=== PATIENT | female | born 1940 | race Caucasian/White ===

== ENCOUNTER → 2018-01-29 12:11 | Outpatient (CLI) | payer MEDICARE, SELFPAY ==
[2018-01-29 13:19] LABS: Add Manual Diff / Slide Review NO; Basophils Percent Auto 0.6 % (0-2); Eosinophils Percent Auto 1.6 % (2-4); Hematocrit 40.6 % (36-46); Hemoglobin 13.5 g/dL (12.0-16.0); Lymphocytes Percent Auto 22.7 % (25-40); Mean Corpuscular HGB Conc 33.4 % (30-36); Mean Corpuscular Hemoglobin 28.5 PG (26-34); Mean Corpuscular Volume 85.5 fL (80-100); Neutrophils Absolute Auto 4200 /uL (3000-5900); Neutrophils Percent Auto 67.1 % (50-75); Platelet Count 270 X10^3/uL (150-400); Red Blood Cell Count 4.75 X10^6/uL (4.0-5.2); Red Cell Distribution Width 13.7 % (11.6-14.8); White Blood Cell Count 6.2 X10^3/uL (4.5-11.0)
[2018-01-29 13:32] LABS: Alanine Aminotransferase 28 IU/L (9-52); Albumin 4.4 g/dL (3.5-5.0); Albumin Globulin Ratio 1.6 (1.0-2.8); Alkaline Phosphatase 68 U/L (38-126); Aspartate Aminotransferase 31 IU/L (14-36); BUN Creatinine Ratio 18.3 (6-22); Bilirubin Total 0.5 mg/dL (0.2-1.3); Blood Urea Nitrogen 11 mg/dL (7-17); Calcium 9.5 mg/dL (8.4-10.2); Carbon Dioxide 33 mmol/L (22-32); Chloride 102 mmol/L (98-107); Cholesterol 199 mg/dL (140-199); Estimated Glomerular Filt Rate > 60.0 mL/min (>60); Globulin 2.7 g/dL (1.7-4.1); Glucose 86 mg/dL (80-110); HDL Cholesterol 93 mg/dL (40-60); HEMOLYSIS < 15 (0-50); LDL Cholesterol Calculated 90 mg/dL (<100); Potassium 3.8 mmol/L (3.4-5.1); Sodium 144 mmol/L (137-145); Total Protein 7.1 g/dL (6.3-8.2); Triglycerides 81 mg/dL (35-150)
[2018-01-29 17:26] LABS: Creatinine Urine Random 21.7 mg/dL
[2018-01-29 17:33] LABS: Microalbumi Creatinin Ratio Ur 27.6 ug/mg CR (<30); Microalbumin Urine Random < 0.6 mg/dL (0-1.6)
== END ==
PROVIDERS: PCP Registered Nurse; Visit Provider Registered Nurse
DX: I10 Essential (primary) hypertension (principal)
CPT/HCPCS: 36415; 80053; 80061; 82043; 82570; 85025

== ENCOUNTER → 2019-01-07 15:34 | Outpatient (CLI) | payer MEDICARE, SELFPAY | PROVIDERS: PCP Registered Nurse; Visit Provider Hospitalist | DX: R19.7 Diarrhea, unspecified (principal) | CPT/HCPCS: 87045; 87899 ==

== ENCOUNTER → 2019-01-07 15:54 | Outpatient (CLI) | payer MEDICARE, SELFPAY ==
[2019-01-07 16:28] LABS: Add Manual Diff / Slide Review NO; Basophils Absolute Auto 0 /uL (0-100); Basophils Percent Auto 0.4 % (0-2); Eosinophils Absolute Auto 100 /uL (0-450); Eosinophils Percent Auto 0.9 % (2-4); Hematocrit 38.2 % (36-46); Hemoglobin 12.8 g/dL (12.0-16.0); Lymphocytes Absolute Auto 1300 /uL (1100-4500); Lymphocytes Percent Auto 23.3 % (25-40); Mean Corpuscular HGB Conc 33.5 % (30-36); Mean Corpuscular Hemoglobin 28.6 PG (26-34); Mean Corpuscular Volume 85.4 fL (80-100); Monocytes Absolute Auto 500 /uL (0-900); Monocytes Percent Auto 9.6 % (3-14); Neutrophils Absolute Auto 3800 /uL (1500-7000); Neutrophils Percent Auto 65.8 % (50-75); Platelet Count 270 X10^3/uL (150-400); Red Blood Cell Count 4.48 X10^6/uL (4.0-5.2); Red Cell Distribution Width 13.8 % (11.6-14.8); White Blood Cell Count 5.7 X10^3/uL (4.5-11.0)
[2019-01-07 16:46] LABS: Alanine Aminotransferase 28 IU/L (9-52); Albumin Globulin Ratio 1.5 (1.0-2.8); Alkaline Phosphatase 78 U/L (38-126); Aspartate Aminotransferase 30 IU/L (14-36); Bilirubin Total 0.4 mg/dL (0.2-1.3); Blood Urea Nitrogen 13 mg/dL (7-17); Calcium 9.4 mg/dL (8.4-10.2); Carbon Dioxide 29 mmol/L (22-32); Chloride 103 mmol/L (98-107); Estimated Glomerular Filt Rate > 60.0 mL/min (>60); Globulin 2.6 g/dL (1.7-4.1); Glucose 85 mg/dL (80-110); HEMOLYSIS < 15 (0-50); Potassium 4.1 mmol/L (3.4-5.1); Sodium 138 mmol/L (137-145); Total Protein 6.6 g/dL (6.3-8.2)
== END ==
PROVIDERS: PCP Registered Nurse; Visit Provider Hospitalist
DX: R19.7 Diarrhea, unspecified (principal)
CPT/HCPCS: 36415; 80053; 85025; 87045; 87899

== ENCOUNTER → 2019-01-08 12:54 | Outpatient (CLI) | payer MEDICARE, SELFPAY ==
[2019-01-08 14:16] LABS: Clostridium Difficile Tox PCR Negative for C. diff
[2019-01-11 21:35] LABS: Fecal Immunochemical Test DETECTED (NOT DETECTED)
== END ==
PROVIDERS: PCP Registered Nurse; Visit Provider Hospitalist
DX: R19.4 Change in bowel habit (principal); R19.7 Diarrhea, unspecified
CPT/HCPCS: 82274; 87493

== ENCOUNTER 2019-02-14 08:12 | Day surgery (SDC) | payer MEDICARE, SELFPAY ==
[2019-02-14] VITALS (7 sets, daily range): BP systolic 129–179; BP diastolic 63–85; PULSE 76–86; RESP 13–16; TEMP 36–36.9; O2SAT 96–98; BMI 20.9
--- NOTE | 2019-02-14 08:41 | PM.HP.1 ---
History of Present Illness History of Present Illness Date Patient Seen: 02/14/19 Time Patient Seen: 08:42 Chief complaint: [id number] COLONOSCOPY Narrative: Patient presents for colorectal screening. They have never had a previous colonoscopy. They have had new intermittent diarrhea over the past 3 months. On further history denies nausea, vomiting, abdominal pain, loss of appetite, unexplained weight loss, constipation, melena, hematochezia, or bright red blood per rectum. Patient History Medical History Cataract (Resolved 2014) Chicken pox (Resolved) COPD (chronic obstructive pulmonary disease) (Chronic) Depression (Chronic ~1994) Foot pain (Chronic) Glaucoma (Chronic) Measles (Resolved) Osteoarthritis (Chronic) Polymyalgia rheumatica (Chronic) Urinary incontinence (Chronic ~1999) Vertigo (Chronic) Surgical History Anesthesia (Resolved) History of cataract removal with insertion of prosthetic lens (Resolved 12/12/14) History of cataract removal with insertion of prosthetic lens (Resolved 02/20/15) Status post bunionectomy (Resolved) Status post cholecystectomy (Resolved) Family History Grandmother Cancer Mother Cancer Brother Alzheimer's disease Sister Alzheimer's disease Social History Smoking Status: Current every day smoker alcohol intake: never substance use type: does not use Family & Social History Family History Grandmother Cancer Mother Cancer Brother Alzheimer's disease Sister Alzheimer's disease Tobacco & Substance use: Smoking Status Current every day smoker alcohol intake never Meds Home Medications and Allergies Home Medications Medication Instructions Recorded Confirmed Type LATANOPROST 0.005% OPHTH 1 drp OPHTH SEE INSTRUCTIONS #2.5 02/07/12 02/14/19 History (Latanoprost) ml lovastatin 40 mg tablet 40 mg PO Q DAY #90 tab 06/28/18 02/14/19 Rx lisinopril 40 mg tablet 60 mg PO QDAY #135 tab 02/11/19 02/14/19 Rx Allergies Allergy/AdvReac Type Severity Reaction Status Date / Time morphine [MORPHINE] Allergy Mild HIVES/RASH/ Verified 02/14/19 08:36 ITCHING Review of Systems Review of Systems ROS Unobtainable: All systems reviewed & are unremarkable except as noted in HPI and below Exam Narrative Exam Narrative: General-no acute distress, poor dentition HEENT-moist mucous membranes, no scleral icterus Neck-supple, no lymphadenopathy Chest- non labored respirations, clear to auscultation bilaterally Cardiac-regular rate no peripheral edema Abdomen-soft, nontender, non distended Extremities-warm, well perfused Neurological-alert and oriented, no focal deficits Assessment & Plan Assessment and plan (1) Screening for colon cancer: Current visit: Yes Status: Acute Assessment & Plan narrative: Patient is requiring colorectal screening. Colonoscopy is recommended. Technical details were discussed. Risks, benefits, alternatives explained. Risks including but not limited to sedation, aspiration, bleeding, pain, missed lesion, incomplete examination, need for further radiographic studies, colonic perforation, need for major abdominal surgery, and all attendant risks major surgery were discussed at length. All questions were answered to their satisfaction, and they voiced understanding.
[2019-02-14] MEDS: SODIUM CHLORIDE 0.9% 1,000 ML 200 ML IV (08:55)
[2019-02-14] MEDS: MIDAZOLAM 5 MG/5 ML VIAL IV (09:29)
[2019-02-14] MEDS: fentaNYL 250 MCG/5 ML INJ IV (09:30)
--- NOTE | 2019-02-14 09:49 | PM.OP.ENDO ---
Operative Date/Time/Diagnoses Date of procedure: 02/14/19 Time of procedure: 09:50 Pre-op diagnosis: screening colonoscopy Post-op diagnosis: same Procedure & Clinicians Study performed: colonoscopy Same procedure as scheduled: Yes Indications: 79-year-old female no previous colonoscopy recent diarrhea presents for screening. Surgeon: Shamar Arora Procedure Notes SCOAP/Timeout: Performed Procedure in detail: Patient placed in left lateral decubitus position. Time out was performed. Procedural sedation was administered with Versed and Fentanyl. A rectal exam demonstrated no external hemorrhoids no internal masses. Colonoscopy scope was placed into the rectum and advanced through the colon to the cecum. The ileocecal valve was identified. The scope was then slowly withdrawn examining colon thoroughly in all directions. The colonoscopy was normal, there were no masses polyps colitis or diverticulosis. The scope was retroflexed within the rectum demonstrated grade 1 internal hemorrhoids. The rectum was desufflated and the scope removed. Patient tolerated procedure well. Scope withdrawal time: 8 Sedation minutes: 22 Findings: internal hemorrhoids Impression: normal colonoscopy Post-procedure Recommendations: Colonscopy in 10 years
== END 2019-02-14 10:26 | disposition home or self-care (01) ==
PROVIDERS: PCP Registered Nurse; Visit Provider Surgery
PROC: 0DJD8ZZ Inspection of Lower Intestinal Tract, Via Natural or Artificial Opening Endoscopic (ICD-10-PCS; CPT 45378; principal; 2019-02-14 09:15)
DX: Z12.11 Encounter for screening for malignant neoplasm of colon (principal); K64.0 First degree hemorrhoids
CPT/HCPCS: G0121; 99152; J2250; J3010

== ENCOUNTER → 2019-12-02 10:39 | Outpatient (CLI) | payer MEDICARE, SELFPAY ==
[2019-12-02 11:32] LABS: Add Manual Diff / Slide Review NO; Basophils Absolute Auto 0 /uL (0-100); Basophils Percent Auto 0.7 % (0-2); Eosinophils Absolute Auto 100 /uL (0-450); Eosinophils Percent Auto 1.5 % (2-4); Hematocrit 39.4 % (36-46); Hemoglobin 13.1 g/dL (12.0-16.0); Lymphocytes Absolute Auto 1300 /uL (1100-4500); Lymphocytes Percent Auto 19.1 % (25-40); Mean Corpuscular HGB Conc 33.1 % (30-36); Mean Corpuscular Hemoglobin 28.4 PG (26-34); Mean Corpuscular Volume 85.6 fL (80-100); Monocytes Absolute Auto 400 /uL (0-900); Monocytes Percent Auto 6.5 % (3-14); Neutrophils Absolute Auto 4800 /uL (1500-7000); Neutrophils Percent Auto 72.2 % (50-75); Platelet Count 254 X10^3/uL (150-400); Red Blood Cell Count 4.61 X10^6/uL (4.0-5.2); White Blood Cell Count 6.6 X10^3/uL (4.5-11.0)
[2019-12-02 11:46] LABS: Alanine Aminotransferase 23 IU/L (<35); Albumin 4.4 g/dL (3.5-5.0); Albumin Globulin Ratio 1.8 (1.0-2.8); Alkaline Phosphatase 75 U/L (38-126); Aspartate Aminotransferase 31 IU/L (14-36); Bilirubin Total 0.6 mg/dL (0.2-1.3); Blood Urea Nitrogen 14 mg/dL (7-17); Calcium 9.5 mg/dL (8.4-10.2); Carbon Dioxide 31 mmol/L (22-32); Chloride 102 mmol/L (98-107); Cholesterol 206 mg/dL (140-199); Estimated Glomerular Filt Rate > 60.0 mL/min (>60); Globulin 2.4 g/dL (1.7-4.1); Glucose 93 mg/dL (80-110); HDL Cholesterol 98 mg/dL (40-60); HEMOLYSIS < 15 (0-50); LDL Cholesterol Calculated 90 mg/dL (<100); Potassium 4.1 mmol/L (3.4-5.1); Sodium 139 mmol/L (137-145); Total Protein 6.8 g/dL (6.3-8.2); Triglycerides 88 mg/dL (35-150)
[2019-12-02 11:52] LABS: Appearance Urine UA CLEAR; Bilirubin Urine UA NEGATIVE (NEGATIVE); Color Urine UA YELLOW; Glucose Urine UA NEGATIVE (Negative); Ketones Urine UA NEGATIVE (NEGATIVE); Leukocyte Esterase Urine UA NEGATIVE (NEGATIVE); Nitrite Urine UA NEGATIVE (Negative); Occult Blood Urine UA NEGATIVE (Negative); Protein Urine UA NEGATIVE (Negative); Specific Gravity Urine UA <=1.005 (1.000-1.035); Urobilinogen Urine UA 0.2 E.U./dL (0.2)
[2019-12-02 11:55] LABS: pH Urine UA 6.5 (4.5-8.0)
[2019-12-02 12:15] LABS: TSH w/ Reflex to FT4 1.48 uIU/mL (0.47-4.68)
== END ==
PROVIDERS: PCP Registered Nurse; Referring Provider Registered Nurse; Visit Provider Registered Nurse
DX: I10 Essential (primary) hypertension (principal); F32.1 Major depressive disorder, single episode, moderate; E78.5 Hyperlipidemia, unspecified
CPT/HCPCS: 36415; 80053; 80061; 81003; 84443; 85025

== ENCOUNTER → 2020-05-19 11:19 | Outpatient (CLI) | payer MEDICARE, SELFPAY ==
[2020-05-19 13:39] LABS: Alanine Aminotransferase 21 IU/L (<35); Albumin 4.2 g/dL (3.5-5.0); Albumin Globulin Ratio 1.7 (1.0-2.8); Alkaline Phosphatase 82 U/L (38-126); Aspartate Aminotransferase 33 IU/L (14-36); BUN Creatinine Ratio 26.8 (6-22); Bilirubin Total 0.4 mg/dL (0.2-1.3); Blood Urea Nitrogen 15 mg/dL (7-17); Calcium 9.4 mg/dL (8.4-10.2); Carbon Dioxide 32 mmol/L (22-32); Chloride 103 mmol/L (98-107); Cholesterol 194 mg/dL (140-199); Estimated Glomerular Filt Rate > 60.0 mL/min (>60); Globulin 2.5 g/dL (1.7-4.1); Glucose 87 mg/dL (80-110); HDL Cholesterol 92 mg/dL (40-60); HEMOLYSIS < 15 (0-50); LDL Cholesterol Calculated 90 mg/dL (<100); Potassium 4.9 mmol/L (3.4-5.1); Sodium 138 mmol/L (137-145); Total Protein 6.7 g/dL (6.3-8.2); Triglycerides 60 mg/dL (35-150)
== END ==
PROVIDERS: PCP Registered Nurse; Referring Provider Registered Nurse; Visit Provider Registered Nurse
DX: I10 Essential (primary) hypertension (principal); E78.5 Hyperlipidemia, unspecified
CPT/HCPCS: 36415; 80053; 80061

== ENCOUNTER → 2021-08-16 14:07 | Outpatient (CLI) | payer OTHER, SELFPAY ==
[2021-08-16 15:10] LABS: Add Manual Diff / Slide Review NO; Basophils Absolute Auto 0 /uL (0-100); Basophils Percent Auto 0.7 % (0-2); Eosinophils Absolute Auto 100 /uL (0-450); Eosinophils Percent Auto 1.2 % (2-4); Hematocrit 38.9 % (36-46); Hemoglobin 13.3 g/dL (12.0-16.0); Lymphocytes Absolute Auto 1200 /uL (1100-4500); Lymphocytes Percent Auto 20.7 % (25-40); Mean Corpuscular HGB Conc 34.2 % (30-36); Mean Corpuscular Hemoglobin 29.2 PG (26-34); Mean Corpuscular Volume 85.4 fL (80-100); Monocytes Absolute Auto 400 /uL (0-900); Monocytes Percent Auto 7.5 % (3-14); Neutrophils Absolute Auto 4200 /uL (1500-7000); Neutrophils Percent Auto 69.9 % (50-75); Platelet Count 263 X10^3/uL (150-400); Red Blood Cell Count 4.56 X10^6/uL (4.0-5.2); Red Cell Distribution Width 13.8 % (11.6-14.8)
[2021-08-16 15:26] LABS: Alanine Aminotransferase 18 IU/L (<35); Albumin 4.4 g/dL (3.5-5.0); Albumin Globulin Ratio 1.6 (1.0-2.8); Alkaline Phosphatase 62 U/L (38-126); Aspartate Aminotransferase 28 IU/L (14-36); BUN Creatinine Ratio 24.1 (6-22); Bilirubin Total 0.3 mg/dL (0.2-1.3); Blood Urea Nitrogen 14 mg/dL (7-17); Calcium 9.1 mg/dL (8.4-10.2); Carbon Dioxide 33 mmol/L (22-32); Chloride 102 mmol/L (98-107); Cholesterol 203 mg/dL (140-199); Estimated Glomerular Filt Rate > 60.0 mL/min (>60); Globulin 2.8 g/dL (1.7-4.1); Glucose 94 mg/dL (80-110); HDL Cholesterol 81 mg/dL (40-60); HEMOLYSIS < 15 (0-50); LDL Cholesterol Calculated 93 mg/dL (<100); Potassium 4.3 mmol/L (3.4-5.1); Sodium 140 mmol/L (137-145); Total Protein 7.2 g/dL (6.3-8.2); Triglycerides 144 mg/dL (35-150)
[2021-08-16 15:53] LABS: TSH w/ Reflex to FT4 0.78 uIU/mL (0.47-4.68)
== END ==
PROVIDERS: PCP Family Medicine; Referring Provider Family Medicine; Visit Provider Family Medicine
DX: E78.5 Hyperlipidemia, unspecified (principal); I10 Essential (primary) hypertension
CPT/HCPCS: 36415; 80053; 80061; 84443; 85025

== ENCOUNTER → 2022-11-18 11:33 | Outpatient (CLI) | payer OTHER, SELFPAY ==
[2022-11-18 12:40] LABS: Free T3, Triiodothyronine Free 3.73 pg/mL (2.77-5.27); Free T4, Direct Thyroxine 1.33 ng/dL (0.78-2.19)
[2022-11-18 12:46] LABS: Alanine Aminotransferase 21 IU/L (<35); Albumin 4.2 g/dL (3.5-5.0); Albumin Globulin Ratio 1.5 (1.0-2.8); Alkaline Phosphatase 98 U/L (38-126); Aspartate Aminotransferase 28 IU/L (14-36); BUN Creatinine Ratio 18.8 (6-22); Bilirubin Total 0.5 mg/dL (0.2-1.3); Blood Urea Nitrogen 12 mg/dL (7-17); Carbon Dioxide 32 mmol/L (22-32); Chloride 99 mmol/L (98-107); Cholesterol 218 mg/dL (140-199); Estimated Glomerular Filt Rate > 60 mL/min (>60); Globulin 2.8 g/dL (1.7-4.1); Glucose 86 mg/dL (80-110); HDL Cholesterol 93 mg/dL (40-60); HEMOLYSIS < 15 (0-50); LDL Cholesterol Calculated 111 mg/dL (<100); Potassium 3.9 mmol/L (3.4-5.1); Sodium 136 mmol/L (137-145); Triglycerides 72 mg/dL (35-150)
[2022-11-18 12:53] LABS: Thyroid Stimulating Hormone 1.75 uIU/mL (0.47-4.68)
[2022-11-18 17:43] LABS: Creatinine Urine Random 45.5 mg/dL
[2022-11-18 18:42] LABS: Microalbumin Urine Random < 0.6 mg/dL (0-1.6)
== END ==
PROVIDERS: PCP Nurse Practitioner; Referring Provider Nurse Practitioner; Visit Provider Nurse Practitioner
DX: I10 Essential (primary) hypertension (principal); E78.5 Hyperlipidemia, unspecified; F32.9 Major depressive disorder, single episode, unspecified; G47.00 Insomnia, unspecified
CPT/HCPCS: 36415; 80053; 80061; 82043; 82570; 84439; 84443; 84481; 93005

== ENCOUNTER → 2022-12-18 | Outpatient (CLI) | payer OTHER, SELFPAY ==
--- NOTE | 2022-12-18 14:16 | DI.RAD.S_ITS ---
Bone Density Report Name: RAMBO WALL Age: 82 Sex: Female Ethnicity: White Date of : 1940 Indication: postmenopausal; screening for osteoporosis; Referring Provider: YUE MCLEAN Study: Bone densitometry was performed. Exam Date: December 18, 2022 Accession number: [id number] Bone Density: Region BMD T-score Z-score Classification AP Spine(L1, L2, L3) 1.003 -0.1 2.6 Normal Femoral Neck (Left) 0.581 -2.4 0.1 Osteopenia Total Hip (Left) 0.834 -0.9 1.4 Normal Femoral Neck (Right) 0.859 0.1 2.6 Normal Total Hip (Right) 0.820 -1.0 1.3 Normal Total Hip Mean 0.827 -1.0 1.4 Normal World Health Organization criteria for BMD impression classify patients as: Normal (T-score at or above -1.0), Osteopenia (T-score between -1.0 and -2.5), or Osteoporosis (T-score at or below -2.5). 10-year Fracture Risk(1): Major Osteoporotic Fracture 15% Hip Fracture 7.7% Reported Risk Factors: [place] (), Neck BMD=0.581, BMI=19.2, smoking (1) FRAX(R) Version 3.08. Fracture probability calculated for an untreated patient. Fracture probability may be lower if the patient has received treatment. Impression: The patient has low bone mass, based on the Left Femoral Neck T-score. The patient has an estimated ten-year risk of hip fracture of 7.7% and an estimated ten-year risk of major fracture of 15%, based on the WHO FRAX algorithm. The patient has risk factors, including: smoking. Discussion: BONE DENSITY IS LOW AT ONE OR MORE SKELETAL SITES. THE PATIENT'S BMD AND CLINICAL RISK FACTORS CONTRIBUTE TO THIS PATIENT'S INCREASED RISK OF FRACTURE. This patient's lowest T-score is low at one or more skeletal sites. It meets the World Health Organization's (WHO) criteria for low bone mass (T-score between -1.0 and -2.5). The patient's 10-year risk of hip fracture as calculated by FRAX exceeds the threshold where pharmacological therapy is recommended by the National Osteoporosis Foundation (NOF). However, all treatment decisions require clinical judgment and consideration of individual patient factors, including patient preferences, comorbidities, previous drug use, risk factors not captured in the FRAX model (e.g., frailty, falls, vitamin D deficiency, increased bone turnover, interval significant decline in bone density) and possible under or overestimation of fracture risk by FRAX. The patient should follow a healthful lifestyle (good nutrition with adequate calcium and vitamin D, and appropriate weight-bearing exercise). Follow-Up: Consider a repeat BMD and Vertebral Fracture Assessment (VFA) exam in 2 years or sooner if medically necessary, to reassess this patient's status. Reported by: DELANO BAKER M.D. on 12/22/2022 4:00:00 PM.
--- NOTE | 2022-12-18 14:16 | DI.ECHO.S_ITS ---
[facility] +---------+ : : [address] [address] : : : : [id number] : : : : Phone: [phone]+ Echocardiogram Report + + :Name: RAMBO WALL Study Date: 12/18/2022 Height: 60 in : :[facility] ReadingLocation: Weight: 94 lb : : Gender: Female BSA: 1.4 m2 : :: 1940 Age: 82 yrs BP: 159/80 mmHg: :Reason For Study: HYPERTENSION : :Ordering Physician: CARIDAD, : :YUE Performed By: Xochilt Mancilla : :Referring: YUE MCLEAN : + + Interpretation Summary Left ventricular systolic function is low normal. The ejection fraction is estimated to be 50-55%. There is basal inferior wall hypokinesis. Diastolic parameters suggest a relaxation abnormality of the left ventricle, consistent with probable normal filling pressures. The right ventricle is normal in size and function. The right ventricular systolic pressure is estimated to be at least 28 mmHg based on an estimated right atrial pressure of 3 mm Hg. The left atrium is mildly dilated. Right atrial size is normal. There is mild mitral regurgitation. There is no other significant valvular heart disease. The aortic root is normal size. Moderate atherosclerotic plaque(s) in the aortic arch. Procedure: A two-dimensional transthoracic echocardiogram with color flow and Doppler was performed. The study quality was technically adequate. There is no prior echocardiogram noted for this patient. The patient was in sinus rhythm with heart rates between 65-78 bpm during the exam. Left Ventricle: The left ventricle is normal in size and wall thickness. Left ventricular systolic function is low normal. The ejection fraction is estimated to be 50-55%. There is basal inferior wall hypokinesis. Diastolic parameters suggest a relaxation abnormality of the left ventricle, consistent with probable normal filling pressures. Right Ventricle: The right ventricle is normal in size and function. Atria: The left atrium is mildly dilated. Right atrial size is normal. There is no Doppler evidence for an interatrial shunt. Mitral Valve: The mitral valve is normal in structure and function. There is mild mitral regurgitation. Aortic Valve: The aortic valve is trileaflet. The aortic valve opens well. There is no aortic valve stenosis. No aortic regurgitation is present. Tricuspid Valve: The tricuspid valve is normal in structure and function. There is mild tricuspid regurgitation. The right ventricular systolic pressure is estimated to be at least 28 mmHg based on an estimated right atrial pressure of 3 mm Hg. Pulmonic Valve: The pulmonic valve is not well seen, but is grossly normal. There is no pulmonic valvular regurgitation. There is no other significant valvular heart disease. Great Vessels: The aortic root is normal size. The ascending aorta could not be visualized. Moderate atherosclerotic plaque(s) in the aortic arch. The IVC is of normal diameter and collapses greater than 50% with a sniff. This suggests a low right atrial pressure of 3 mm Hg. Pericardium/ Pleura There is no pericardial effusion. There is no pleural effusion. MMode/2D Measurements & Calculations LVIDd: 4.1 cm LVOT diam: 1.7 cm LVIDs: 3.0 cm Ao root diam: 2.8 cm FS: 27.5 % Ao Arch Diam (Prox Trans): 2.0 cm EPSS: 0.61 cm IVSd: 1.1 cm LVPWd: 0.92 cm LV garcia. diameter/BSA (cm/m^2): 3.0 LV sys. diameter/BSA (cm/m^2): 2.2 LA A2 area: 18.0 cm2 RA long axis: 4.1 cm LA A4 area: 15.0 cm2 RA area: 11.1 cm2 LA length (vol): 4.6 cm RA vol: 25.6 ml LA vol: 49.1 ml RA : 18.9 ml/m2 LA vol index: 36.3 ml/m2 IVC diam: 1.5 cm RVD1 (basal): 3.3 cm RVD2 (mid): 2.7 cm TAPSE: 2.6 cm Doppler Measurements & Calculations Ao V2 max: 172.4 cm/sec LVOT Max Arjun: 111.9 cm/sec Ao V2 mean: 123.9 cm/sec LV V1 max P.0 mmHg Ao max P.9 mmHg LV V1 VTI: 25.0 cm Ao mean P.6 mmHg MOJGAN(I,D): 1.4 cm2 Ao V2 VTI: 40.6 cm MOJGAN(V,D): 1.5 cm2 sev ratio: 0.62 MOJGAN indexed to BSA (cm^2/m^2): 1.1 MV E max arjun: 74.9 cm/sec TR max arjun: 249.3 cm/sec MV A max arjun: 87.9 cm/sec TR max P.9 mmHg MV E/A: 0.85 PA V2 max: 93.0 cm/sec Med Peak E' Arjun: 7.8 cm/sec PA V2 mean: 67.9 cm/sec E/E' med: 9.6 PA mean P.1 mmHg Lat Peak E' Arjun: 7.5 cm/sec PA pr(Accel): 31.0 mmHg E/E' lat: 10.0 E/e' average: 9.8 MV dec time: 0.17 sec SV(LVOT): 58.5 ml Reading Physician:04:23 PM
== END ==
LOC: RAD 14:15
PROVIDERS: PCP Nurse Practitioner; Referring Provider Nurse Practitioner; Visit Provider Nurse Practitioner
DX: Z13.820 Encounter for screening for osteoporosis (principal); I08.1 Rheumatic disorders of both mitral and tricuspid valves; I70.0 Atherosclerosis of aorta; I10 Essential (primary) hypertension; M85.852 Other specified disorders of bone density and structure, left thigh; Z78.0 Asymptomatic menopausal state
CPT/HCPCS: 77080; 93306

== ENCOUNTER → 2023-11-26 16:14 | Outpatient (CLI) | payer OTHER, SELFPAY ==
[2023-11-26 18:32] LABS: Alanine Aminotransferase 22 IU/L (<35); Albumin 4.1 g/dL (3.5-5.0); Albumin Globulin Ratio 1.9 (1.0-2.8); Alkaline Phosphatase 82 U/L (38-126); Aspartate Aminotransferase 30 IU/L (14-36); BUN Creatinine Ratio 16.9 (6-22); Bilirubin Total 0.4 mg/dL (0.2-1.3); Blood Urea Nitrogen 10 mg/dL (7-17); Calcium 8.8 mg/dL (8.4-10.2); Carbon Dioxide 27 mmol/L (22-32); Chloride 103 mmol/L (98-107); Cholesterol 196 mg/dL (140-199); Estimated Glomerular Filt Rate > 60 mL/min (>60); Globulin 2.2 g/dL (1.7-4.1); Glucose 106 mg/dL (80-110); HDL Cholesterol 86 mg/dL (40-60); HEMOLYSIS < 15 (0-50); LDL Cholesterol Calculated 90 mg/dL (<100); Potassium 4.3 mmol/L (3.4-5.1); Sodium 137 mmol/L (137-145); Total Protein 6.3 g/dL (6.3-8.2); Triglycerides 99 mg/dL (35-150)
[2023-11-26 18:43] LABS: Creatinine Urine Random 42.19 mg/dL
[2023-11-26 18:46] LABS: Free T3, Triiodothyronine Free 3.55 pg/mL (2.77-5.27); Free T4, Direct Thyroxine 1.07 ng/dL (0.78-2.19)
[2023-11-26 18:49] LABS: Microalbumin Urine Random < 0.6 mg/dL (0-1.6)
[2023-11-26 19:00] LABS: Thyroid Stimulating Hormone 1.78 uIU/mL (0.47-4.68)
== END ==
PROVIDERS: PCP Nurse Practitioner; Referring Provider Nurse Practitioner; Visit Provider Nurse Practitioner
DX: E78.5 Hyperlipidemia, unspecified (principal); F32.1 Major depressive disorder, single episode, moderate; G47.00 Insomnia, unspecified; I10 Essential (primary) hypertension
CPT/HCPCS: 80053; 80061; 82043; 82570; 84439; 84443; 84481

== ENCOUNTER → 2023-12-03 11:23 | Outpatient (CLI) | payer OTHER, SELFPAY ==
--- NOTE | 2023-12-03 11:23 | DI.CT.S_ITS ---
PROCEDURE: CT CHEST WO CON INDICATIONS: tobacco use disorder, SOB TECHNIQUE: Noncontrast 5 mm thick sections acquired from the pulmonary apices to the posterior costophrenic angles. 1 mm lung window, 5 mm thick coronal and sagittal and 7 mm axial MIP reformats were then acquired. For radiation dose reduction, the following was used: automated exposure control, adjustment of mA and/or kV according to patient size. COMPARISON: None. FINDINGS: Image quality: Diagnostic. Lower Neck: No enlarged lymph nodes. Thyroid: No thyroid nodules which require sonographic follow up, per consensus guidelines. Axillae: No enlarged lymph nodes. Chest Wall: There is a 0.7 centimeter nodule within the superior left breast. Bones: Grade 1 anterolisthesis within the upper thoracic spine. None. Lungs and Pleura: No pneumothorax or pleural effusions. Scarring within the lung apices. There is a small 4 millimeter cavitary lesion within the superior posterior left upper lobe. Emphysematous changes through the lungs. Bilateral bulla within the medial upper lungs. Heart: Heart size is normal. No pericardial effusion. Thoracic Vessels: The aorta and pulmonary arteries demonstrate normal size. Calcified arthrosclerotic plaques within the aorta, its tributaries in coronary arteries. Mediastinum and Mone: No enlarged lymph nodes. Esophagus: No wall thickening. No hiatal hernia. Upper Abdomen: Visualized upper abdomen solid organs and bowel loops appear normal. Cholecystectomy clips within the right upper quadrant. IMPRESSION: 1. There is a 4 millimeter cavitary lesion within the superior posterior left upper lobe. Given prior smoking history, a developing neoplasm cannot be excluded. A follow-up CT of the chest suggested to ensure stability and/or resolution. 2. There is a 0.7 centimeter nodule within the superior left breast. Correlate with the mammogram. 3. Emphysematous changes 4. There are calcified arthrosclerotic plaques within the aorta, its tributaries and coronary arteries. Dictated by: Vamsi Etienne M.D. on 12/03/2023 at 15:59 Approved by: Vamsi Etienne M.D. on 12/03/2023 at 16:12
== END ==
PROVIDERS: PCP Nurse Practitioner; Referring Provider Nurse Practitioner; Visit Provider Nurse Practitioner
DX: R06.02 Shortness of breath (principal); R91.8 Other nonspecific abnormal finding of lung field; N63.25 Unspecified lump in the left breast, overlapping quadrants; I70.0 Atherosclerosis of aorta; F17.200 Nicotine dependence, unspecified, uncomplicated; M43.14 Spondylolisthesis, thoracic region
CPT/HCPCS: 71250

== ENCOUNTER → 2023-12-31 11:19 | Outpatient (CLI) | payer OTHER, SELFPAY ==
--- NOTE | 2023-12-31 11:20 | DI.CT.S_ITS ---
PROCEDURE: CT CHEST WO CON INDICATIONS: F/u recomm from CT done on the TECHNIQUE: Noncontrast 5 mm thick sections acquired from the pulmonary apices to the posterior costophrenic angles. 1 mm lung window, 5 mm thick coronal and sagittal and 7 mm axial MIP reformats were then acquired. For radiation dose reduction, the following was used: automated exposure control, adjustment of mA and/or kV according to patient size. COMPARISON: [facility], CT, CT CHEST WO CON, 12/03/2023, 11:40. FINDINGS: Image quality: Diagnostic. Lower Neck: No enlarged lymph nodes. Thyroid: No thyroid nodules which require sonographic follow up, per consensus guidelines. Axillae: No enlarged lymph nodes. Chest Wall: Stable 7 millimeter nodularity in the medial left breast. Bones: Unremarkable. Lungs and Pleura: No pneumothorax or pleural effusions. Stable 6 millimeter nodule with central cavitation in the left upper lobe (series 3, image 67). Moderate centrilobular emphysema. Diffuse bronchial thickening. Biapical scarring. Scattered pulmonary micro nodules. Heart: Heart size is normal. No pericardial effusion. Three-vessel coronary artery calcifications. Thoracic Vessels: The aorta and pulmonary arteries demonstrate normal size. Mediastinum and Mone: No enlarged lymph nodes. Esophagus: No wall thickening. Small hiatal hernia. Upper Abdomen: Cholecystectomy. IMPRESSION: Stable 6 millimeter nodule with central cavitation in the left upper lobe. Differential includes malignancy or scar. Recommend three-month follow-up with low-dose chest CT. Stable nodule in the medial left breast. Consider further workup at a diagnostic breast Center, if not performed in the past. Dictated by: Stef Vernon M.D. on 12/31/2023 at 15:42 Approved by: Stef Vernon M.D. on 12/31/2023 at 15:45
== END ==
PROVIDERS: PCP Nurse Practitioner; Referring Provider Nurse Practitioner; Visit Provider Nurse Practitioner
DX: R91.1 Solitary pulmonary nodule (principal); J43.2 Centrilobular emphysema; K44.9 Diaphragmatic hernia without obstruction or gangrene; F17.200 Nicotine dependence, unspecified, uncomplicated; I25.10 Atherosclerotic heart disease of native coronary artery without angina pectoris; N64.89 Other specified disorders of breast; Z90.49 Acquired absence of other specified parts of digestive tract
CPT/HCPCS: 71250

== ENCOUNTER → 2024-04-11 11:25 | Outpatient (CLI) | payer OTHER, SELFPAY ==
--- NOTE | 2024-04-11 11:26 | DI.CT.S_ITS ---
PROCEDURE: CT CHEST WO CON INDICATIONS: FU pulmonary nodule TECHNIQUE: Noncontrast 2.0-2.5 mm thick sections acquired from the pulmonary apices to the posterior costophrenic angles. 7 mm thick axial MIP and 5 mm coronal and sagittal reformats were then acquired. For radiation dose reduction, the following was used: automated exposure control, adjustment of mA and/or kV according to patient size. COMPARISON: None. FINDINGS: Image quality: Excellent Lungs: Large tracheal diverticulum is noted, unchanged from prior exam. Mild centrilobular and paraseptal emphysema. Previously seen 6 mm cavitary pulmonary nodule in the left upper lobe, now appear solid (03:57), but is unchanged in size from prior exam. No pleural effusion pneumothorax. No pulmonary edema or focal consolidation. Soft tissue/mediastinum: Moderate calcification of the thoracic aorta. No thoracic aortic aneurysm. Heart is normal in size. No pericardial effusion. Severe LAD and RCA coronary artery calcification. No mediastinal, hilar, or axillary lymphadenopathy. Small subcutaneous nodule in the medial aspect of the left chest wall/medial left breast, unchanged from prior exam. Visualized upper abdomen: Subcentimeter hypoattenuating lesion in hepatic segment 8 (2:8), unchanged from prior exam. Status post cholecystectomy. Bones: Mild dextroscoliosis of the thoracic spine. IMPRESSION: 6 mm solid pulmonary nodule in the left upper lobe, previously cavitary, but is unchanged in size from prior exam. Recommendations below. Fleischner Society criteria for SOLID lung nodule followup. Nodule size (mm)Low-risk patientHigh-risk patient<6 (single or multiple)No routine followup.Optional CT at 12 months. 6-8 (single or multiple)CT at 6-12 months, then optional CT at 18-24 mo.CT at 6-12 months, then CT at 18-24 months. >8 (single)CT at 3 months, PET-CT, or biopsy. Same as for low-risk pts. >8 (multiple)CT at 3-6 months, then optional CT at 18-24 mo.CT at 3-6 months, then CT at 18-24 months. Fleischner Society criteria for SUB-SOLID lung nodule followup. Solitary pure ground-glass nodules<6 mm (ground glass or part solid)No followup needed. 6 mm or larger (ground glass)CT at 6-12 months to confirm persistence, then CT every 2 years until 5 years.6 mm or larger (part solid)CT at 3-6 months to confirm persistence, then annual CT until 5 years if unchanged and solid component remains <6 mm. Multiple sub-solid nodules<6 mmCT at 3-6 months, then CT consider at 2 & 4 years for high risk patients. [address] at 3-6 months. Subsequent management based on most suspicious lesions. Recommendations do not apply to lung cancer screening, patients with immunosuppression, or patients with known primary cancer. Dictated by: Linda Redd M.D. on 04/11/2024 at 13:08 Approved by: Linda Redd M.D. on 04/11/2024 at 13:23 PATIENT NAME: RAMBO WALL : 1940 EXAM DATE: 04/11/2024 11:48 ORD. .: YUE ROBERTSON CC: MODALITY: CT PATIENT TYPE: Out CONTRAST MEDIA: STATION ID: [id number] FLUORO TIME: PATIENT NAME: RAMBO WALL : 1940 EXAM DATE: 04/11/2024 11:48 ORD. : YUE ROBERTSON CC: MODALITY: CT PATIENT TYPE: Out CONTRAST MEDIA: STATION ID: [id number] FLUORO TIME:
== END ==
PROVIDERS: PCP Family Medicine; Referring Provider Nurse Practitioner; Visit Provider Nurse Practitioner
DX: R91.1 Solitary pulmonary nodule (principal); J39.8 Other specified diseases of upper respiratory tract; J43.2 Centrilobular emphysema; I70.0 Atherosclerosis of aorta; I25.10 Atherosclerotic heart disease of native coronary artery without angina pectoris; K76.9 Liver disease, unspecified; M41.9 Scoliosis, unspecified; R22.2 Localized swelling, mass and lump, trunk; Z90.49 Acquired absence of other specified parts of digestive tract
CPT/HCPCS: 71250